=== PATIENT | female | born 1980 | race Caucasian/White ===

== ENCOUNTER 2016-11-16 00:13 | Emergency (ER) | payer OTHER ==
[~2016-11-16] VITALS: Ht 157.5 cm; Wt 88.9 kg
[~2016-11-16 00:13] MED LIST: PROTONIX40 MG PO
[2016-11-16 01:59] LABS: EOSINOPHIL (%) 0.8 % (0-5); EOSINOPHIL COUNT 0.1 K/uL (0-0.3); HEMATOCRIT 35.9 % (36.0-46.0); IMMATURE GRANULOCYTE (%) 0.5 % (0.0-0.7); IMMATURE GRANULOCYTE COUNT 0.1 K/uL; INSTRUMENT ABS NEUTROPHIL CT 8.9 K/uL; LYMPHOCYTE COUNT 2.8 K/uL (1.0-2.8); MCH 27.3 PG (29.0-34.0); MCV 85.1 FL (83-99); MEAN PLAT.VOLUME 10.1 uM^3 (9.5-12.4); MONOCYTE (%) 8.1 % (3-12); MONOCYTE COUNT 1.1 K/uL (0-0.8); NEUTROPHIL (%) 68.5 % (45-76); NEUTROPHIL COUNT 8.9 K/uL (1.8-6.4); PLATELET COUNT 355 K/uL (156-360); RBC DIS.WIDTH-SD 43.8 % (39-53); RED BLOOD COUNT 4.22 M/uL (3.80-5.20)
[2016-11-16 02:16] LABS: CHLORIDE 105 mEq/L (99-109); SODIUM 142 mEq/L (136-147)
[2016-11-16 02:18] LABS: GLUCOSE 103 mg/dL (70-99)
[2016-11-16 02:19] LABS: ANION GAP 10 MEQ/L (2-14)
[2016-11-16 02:20] LABS: TOTAL BILIRUBIN 0.4 mg/dL (0.0-1.0)
[2016-11-16 02:21] LABS: ALKALINE PHOSPHATASE 77 IU/L (3-129)
[2016-11-16 02:22] LABS: GFR ESTIMATE (CALCULATED) > 59 mL/min/
[2016-11-16 02:23] LABS: UREA NITROGEN (BUN) 4 mg/dL (9-23)
[2016-11-16 02:25] LABS: LIPASE 5 U/L (1.0-51.0)
[2016-11-16 02:31] LABS: QUANTITATIVE HCG < 4.0 MIU/ML
[2016-11-16 02:32] LABS: INFLUENZA A VIRAL ANTIGEN NEGATIVE
[2016-11-16 02:33] LABS: INFLUENZA B VIRAL ANTIGEN NEGATIVE
[2016-11-16 03:22] LABS: ADD MIUA? YES; BILIRUBIN NEGATIVE; BLOOD NEGATIVE; COLOR YELLOW ((YELLOW)); GLUCOSE (STRIP) NEGATIVE; KETONES NEGATIVE; LEUKOCYTES NEGATIVE; NITRITE NEGATIVE; PROTEIN (STRIP) NEGATIVE; SPECIFIC GRAVITY 1.018 (1.000-1.030); UROBILINOGEN 0.2 MG/DL (0.2-1.0)
[2016-11-16 03:41] LABS: BACTERIA RARE /HPF; EPITHELIAL CELLS 1+ /HPF; MUCUS TRACE /LPF; RED BLOOD CELLS 0-5 /HPF (0-5); UCUL ADDED? NO; WHITE BLOOD CELLS 0-5 /HPF (0-5)
[2016-11-16] MEDS ORDERED: ZOFRAN ODT4 MG PO (04:16)
[2016-11-16 04:28] VITALS: BP 126/90
== END 2016-11-16 04:29 | disposition home or self-care (01) ==
LOC: EME 00:13
PROVIDERS: Emergency Medicine
DX: R11.2 Nausea with vomiting, unspecified (principal); D72.829 Elevated white blood cell count, unspecified; E87.6 Hypokalemia; J02.9 Acute pharyngitis, unspecified; R68.83 Chills (without fever); F17.200 Nicotine dependence, unspecified, uncomplicated
CPT/HCPCS: 71020; 74177; 80053; 81003; 83690; 84702; 85025; 87502; 99281; 99284; J2405; J7030